=== PATIENT | female | born 1970 | race Caucasian/White ===

== ENCOUNTER 2017-05-02 06:04 | Day surgery (SDC) | payer OTHER ==
[~2017-05-02] VITALS: Ht 177.8 cm; Wt 72.7 kg
[2017-05-02] VITALS (12 sets, daily range): BP systolic 90–113; BP diastolic 43–67; PULSE 52–72; RESP 10–29; Ht 177.8 cm; Wt 72.7 kg
--- NOTE | 2017-05-02 07:30 | HPN ---
Date/Time of Note Date/Time of Note DATE: 05/02/17 TIME: 07:29 Interval H&P Admission Note Pt. seen H&P reviewed: No system changes JENNIFER REID MD May 02, 2017 07:30
[2017-05-02] MEDS ORDERED: FENTAnyl 50 MCG/ML VIAL ONE ×2 (07:36→08:14)
[2017-05-02] MEDS ORDERED: KETOROLAC 30 MG INJ ONE (07:50)
[2017-05-02] MEDS ORDERED: PROPOFOL 100 ML ONE (07:50)
[2017-05-02] MEDS ORDERED: SODIUM CHLORIDE 0.9% 1L IRRIG IRR ONE (08:23)
--- NOTE | 2017-05-02 09:00 | SIPON ---
Date/Time of Note Date/Time of Note DATE: 05/02/17 TIME: 08:45 Operative Report Preoperative Diagnosis endocervical polyp Postoperative Diagnosis same as above Operation/Procedure Performed hysteroscopy endocervical polypectomy uterine curettings Surgeon see signature line critical care physician assistant MT Anesthesia: general Estimated blood loss: minimal Transfusion Required none Specimen endocervical polyp [facility] Grafts/Implants none Complications none JENNIFER REID MD May 02, 2017 08:55
--- NOTE | 2017-05-02 09:01 | PD.PPDC ---
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
[2017-05-02] MEDS ORDERED: MEPERIDINE 25 MG INJ IV PRN (09:30)
[2017-05-02] MEDS ORDERED: KETOROLAC 30 MG INJ IV PRN (09:30)
[2017-05-02] MEDS ORDERED: DIPHENHYDRAMINE 50 MG INJ IV PRN (09:30)
[2017-05-02] MEDS ORDERED: ONDANSETRON 4 MG INJ IV PRN (09:30)
[2017-05-02] MEDS ORDERED: hydrALAzine 20 MG INJ IV PRN (09:30)
[2017-05-02] MEDS ORDERED: ALBUTEROL 0.083% (NEB) 2.5 MG/3 ML AMP HHN PRN (09:30)
[2017-05-02] MEDS ORDERED: EPHEDrine SULFATE 50 MG/5 ML SYG IV PRN (09:30)
[2017-05-02] MEDS ORDERED: OXYCODONE/ACETAMINOPHEN (5/325) TAB PO PRN ×2 (09:30)
[2017-05-02] MEDS ORDERED: HYDROmorphONE (0.2 MG/ML) 10ML SYG IV PRN ×2 (09:30)
[2017-05-02] MEDS ORDERED: LABETALOL HCL 20MG INJ IV PRN (09:30)
[2017-05-02] MEDS ORDERED: METOCLOPRAMIDE 10 MG INJ IV PRN (09:30)
[2017-05-02] MEDS ORDERED: FENTAnyl 50 MCG/ML VIAL IV PRN ×3 (09:30)
--- NOTE | 2017-05-04 20:06 | OPR ---
DATE OF OPERATION: 05/02/2017 PREOPERATIVE DIAGNOSIS: Endocervical polyp. POSTOPERATIVE DIAGNOSIS: Endocervical polyp. See pathological report. NAME OF PROCEDURE: Hysteroscopy, endocervical polypectomy and endocervical curettage and uterine cu rettage. 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 ANESTHESIOLOGIST: Dr. Wong. ESTIMATED BLOOD LOSS: Minimal. PROCEDURE: Under appropriate induction of general anesthesia, the patient was placed in dorsal lith otomy position. Perineal area and vagina wall were prepped and draped in usual aseptic manner. A w eighted speculum introduced, the cervix identified which exhibited a large endocervical polyp, which was occupying the entire cervical os without protruding out. Anterior lip of the cervix was graspe d with a single tooth tenaculum and used the packing forceps and then removed most of the endocervic al polyp. The cavity was sounded, which was 8.5 cm, was dilated up to 6 and size 6 hysteroscope was introduced, which was all prepared for the procedure as usual, which was introduced in the endocerv ical canal the remnant of the endocervical polyp left and advanced it to the fundus. There i s no evidence of septated or accreted uterus which shows on the ultrasound the possibility. Fundus was normal. Both ostia were normal which picture was taken of both ostia and fundus, and the resect or was introduced through the scope, and starting from the endocervical canal and removed the rest o f the remnant of the endocervical polyp. Then went into the fundus and the entire cavity was curett ed using resector in all directions and the procedure was completed. Estimated blood loss was minim al, and the hysteroscope was removed. During the procedure, picture was taken which was not satisfa ctory because intermittently the camera does not work when we recorded it. Fluid deficit is only 12 0 mL and all the instruments were removed from the patient including tenaculum. Sponge count was co rrect. The patient withstood procedure and was sent to recovery in stable condition. Dictated By: STACEY SEGOVIA/TRUDY Conf#: [id number] DID#: [id number]
== END 2017-05-02 10:30 | disposition home or self-care (01) ==
LOC: SDS 06:04
PROVIDERS: ATTEND Obstetrics & Gynecology
DX: N84.1 Polyp of cervix uteri (principal)
CPT/HCPCS: 58558; 88305; A4217; J1885; J2175; J3010; Z7512; Z7610

== ENCOUNTER 2018-12-07 11:48 | Day surgery (SDC) | payer OTHER ==
[~2018-12-07] VITALS: Ht 177.8 cm; Wt 67.3 kg
[2018-12-07 12:18] VITALS: Ht 177.8 cm; Wt 67.3 kg
[2018-12-07 12:46] VITALS: BP 112/77; PULSE 84; RESP 18
[2018-12-07] MEDS ORDERED: PROPOFOL 20 ML ONE (13:04)
--- NOTE | 2018-12-07 13:09 | PREAC ---
Date/Time of Note Date/Time of Note DATE: 12/07/18 TIME: 13:08 Anesthesia Eval and Record Evaluation Time Pre-Procedure Interview DATE: 12/07/18 TIME: 13:08 Age 48 Sex female NPO: 8 hrs Preoperative diagnosis ulcerative colitis Planned procedure colonoscopy Past Medical History Past Medical History: Includes GI: Other (uclerative colitis) Surgery & Anesthesia Issues No known issue Meds Anticoagulation: No Beta [place] within 24 hr: No Reason Beta [place] not given: Pt. not on B-[place] Reported Medications [None] No Conflict Check 12/07/18 Meds reviewed: Yes Allergies Coded Allergies: sulfasalazine (Verified Adverse Reaction, Intermediate, 12/07/18) Allergies Reviewed: Yes Labs/Studies Labs Reviewed: Reviewed by anesthesiologist test: Negative Pre-procedure Exam Last vitals Vital Signs Date Temp Pulse Resp B/P (MAP) Pulse Ox O2 O2 Flow FiO2 Time Delivery Rate 12/07/18 97.5 84 18 112/77 100 Room Air 12:46 (89) Airway: Adequate mouth opening, Adequate thyromental dist Mallampati: Mallampati II Teeth: Normal Lung: Normal Heart: Normal ASA Physical Status ASA physical status: 2 Emergency: None Planned Anesthetic General/MAC: MAC, TIVA Planned Pain Management Parenteral pain med, Local by surgeon Pre-operative Attestations Prior to commencing anesthesia and surgery, the patient was re-evaluated, there was verification of: *The patient's identity *The results of appropriate recent lab work and preoperative vital signs *The above evaluation not changing prior to induction *Anesthetic plan, risk benefits, alternative and complications discussed with patient/family; questions answered; patient/family understands, accepts and wishes to proceed. RIVER YOUSIF Dec 07, 2018 13:09
[2018-12-07 13:53] VITALS: BP 104/71; PULSE 70; RESP 18
--- NOTE | 2018-12-07 14:32 | PAC ---
Date/Time of Note Date/Time of Note DATE: 12/07/18 TIME: 14:32 Post-Anesthesia Notes Post-Anesthesia Note Last documented vital signs Vital Signs Date Temp Pulse Resp B/P (MAP) Pulse Ox O2 O2 Flow FiO2 Time Delivery Rate 12/07/18 70 18 104/71 99 Room Air 13:53 (82) 12/07/18 97.5 12:46 Activity: WNL Respiratory function: WNL Cardiovascular function: WNL Mental status: Baseline Pain reasonably controlled: Yes Hydration appropriate: Yes Nausea/Vomiting absent: Yes RIVER YOUSIF Dec 07, 2018 14:32
[2018-12-07 15:14] VITALS: BP 84/84; PULSE 60; RESP 18
== END 2018-12-07 15:13 | disposition home or self-care (01) ==
LOC: GIL 11:48
PROVIDERS: ATTEND Internal Medicine Gastroenterology
DX: K92.1 Melena (principal); K51.90 Ulcerative colitis, unspecified, without complications; K64.8 Other hemorrhoids
CPT/HCPCS: 45380; 84703; 88305; Z7610